=== PATIENT | male | born 1985 | race Caucasian/White ===

== ENCOUNTER 2016-05-30 16:34 | Emergency (ER) | payer MEDICAID ==
[2014-09-10 06:04] VITALS: BMI 38.3
[~2016-05-30 16:34] MED LIST: ABILIFY15 MG PO; BACTRIM DS TABL1 TAB PO; CYCLOBENZAPRINE5 MG PO; DYAZIDE 37.5/251 CAP PO; ELAVIL25 MG PO; ELAVIL75 MG PO; GLUCOPHAGE500 MG PO; HYDROCODONE-APA1 TAB PO; METOPROLOL TAR100 M1 PO; STOOL SOFTENER240 MG PO; TRIGLIDE160 MG PO; XANAX1 MG PO; ZANTAC150 MG PO; ZOLOFT50 MG PO
[2016-05-30 17:04] LABS: BASOPHILS 0.5 % (0.0-2.0); EOSINOPHILS 1.8 % (0-7); HEMATOCRIT 41.9 % (42.0-54.0); HEMOGLOBIN 13.8 g/dL (13.5-17.5); IMMATURE GRANULOCYTES 0.1 % (0-5); LYMPHOCYTES 37.6 % (15-50); MCH 28.8 pg (26.0-34.0); MCHC 32.9 g/dL (31.0-37.0); MCV 87.3 fL (80.0-100.0); MEAN PLATELET VOLUME 10.6 fL (7.4-10.4); MONOCYTES 8.2 % (2-11); NEUTROPHILS 51.8 % (40-80); PLATELET COUNT 218 10x3/uL (130-400); RDW 12.8 % (11.5-14.5); WBC 7.8 10x3/uL (4.8-10.8)
[2016-05-30 17:22] LABS: ALBUMIN 3.9 g/dL (3.4-5.0); ALKALINE PHOSPHATASE 78 U/L (46-116); ALT (SGPT) 42 U/L (10-68); BILIRUBIN - TOTAL 0.41 mg/dL (0.2-1.3); CALC OSMOLALITY 278 mosm/kg (275-300); CALCIUM 9.1 mg/dL (8.5-10.1); CHLORIDE - SERUM 102 mmol/L (98-107); GLUCOSE 91 mg/dL (74-106); PROTEIN - SERUM 7.4 g/dL (6.4-8.2); SODIUM 140 mmol/L (136-145); UREA NITROGEN 12 mg/dL (7-18); eGFR NON AFRICAN AMERICAN > 90 mL/min (90-120)
== END 2016-05-30 19:55 | disposition home or self-care (01) ==
LOC: D.ER 16:34
PROVIDERS: Emergency Medicine Emergency Medical Services
DX: M94.0 Chondrocostal junction syndrome [Tietze] (principal); J20.9 Acute bronchitis, unspecified; F41.9 Anxiety disorder, unspecified; E78.5 Hyperlipidemia, unspecified; F17.200 Nicotine dependence, unspecified, uncomplicated

== ENCOUNTER 2016-06-08 16:32 | Emergency (ER) | payer MEDICAID ==
[2014-09-10 06:04] VITALS: BMI 38.3
== END 2016-06-08 22:38 | disposition left against medical advice (07) ==
LOC: D.ER 16:32
DX: B02.9 Zoster without complications (principal)

== ENCOUNTER → 2016-07-27 14:52 | Outpatient (CLI) | payer MEDICAID ==
[2014-09-10 06:04] VITALS: BMI 38.3
== END | disposition home or self-care (01) ==
LOC: D.MRI 14:30
DX: M54.16 Radiculopathy, lumbar region (principal)

== ENCOUNTER → 2017-02-21 05:08 | Day surgery (SDC) | payer MEDICAID ==
[~2017-02-21 05:08] MED LIST changes: -HYDROCODONE-APA1 TAB PO; +LIPITOR40 MG PO; -METOPROLOL TAR100 M1 PO; +METOPROLOL TART50 MG PO; +NEURONTIN 300300 MG PO; +NORCO 7.5/325 T1 TA1 PO; +OXYCODONE HCL5 MG PO; +ROBAXIN-750750 MG PO; +STOOL SOFTENER100 M1 PO; -STOOL SOFTENER240 MG PO
[2017-02-21 06:13] VITALS: BP 101/62; BMI 31.5
[2017-02-21 06:25] LABS: HEMATOCRIT 40.9 % (42.0-54.0); HEMOGLOBIN 13.8 g/dL (13.5-17.5); MCH 29.3 pg (26.0-34.0); MCHC 33.7 g/dL (31.0-37.0); MCV 86.8 fL (80.0-100.0); MEAN PLATELET VOLUME 10.7 fL (7.4-10.4); RBC 4.71 10x6/uL (4.20-6.10); WBC 7.8 10x3/uL (4.8-10.8)
[2017-02-21 06:42] LABS: CALC OSMOLALITY 275 mosm/kg (275-300); CALCIUM 8.6 mg/dL (8.5-10.1); CARBON DIOXIDE 29.9 mmol/L (21.0-32.0); CHLORIDE - SERUM 99 mmol/L (98-107); CREATININE - SERUM 0.9 mg/dL (0.6-1.3); GLUCOSE 111 mg/dL (74-106); POTASSIUM - SERUM 3.9 mmol/L (3.5-5.1); SODIUM 137 mmol/L (136-145); UREA NITROGEN 15 mg/dL (7-18); eGFR NON AFRICAN AMERICAN > 90 mL/min (90-120)
--- NOTE | 2017-02-21 18:19 | NUR ---
1100--IV DC'D, PT UP TO DRESS AT THIS TIME. YOSVANY PICKERING 1120--DISCHARGE INSTRUCTIONS GIVEN, PT VERBALIZES UNDERSTANDING. PT OFF UNIT VIA WC. YOSVANY PICKERING
--- NOTE | 2017-02-22 10:30 | OP ---
PATIENT NAME: KEAGAN DEE MEDICAL RECORD: [id number] :87 LOCATION:D.OPS ADMISSION DATE: SURGEON: FELECIA LORENZO MD DATE OF OPERATION: 02/21/2017 PREOPERATIVE DIAGNOSES: 1. Recurrent pilonidal cyst. 2. Hypertension. 3. GERD. 4. Tobacco dependent syndrome. POSTOPERATIVE DIAGNOSES: 1. Recurrent pilonidal cyst. 2. Hypertension. 3. GERD. 4. Tobacco dependent syndrome. PROCEDURE: Pilonidal cystectomy with marsupialization. SURGEON: Felecia Lorenzo MD REPORT OF PROCEDURE: The patient was placed in the jackknife prone position and the perianal region was prepped and draped in sterile fashion. There was an opening in the midline of the gluteal crease, and with probing this, it was noted to extend inferiorly. We opened up the skin overlying this using electrocautery and encountered a long narrow cystic cavity. The cyst cavity was excised on all sides, revealing what appeared to be scar tissue and fatty tissue. We then irrigated out the wound thoroughly with normal saline. We measured out and the total length of the incision was about 5 cm. The skin edges were undermined and the skin was sutured down to the presacral fascia using interrupted #0 Vicryls. There was good marsupialization of the tissue. We then packed the wound with damp gauze and covered with dry gauze. COMPLICATIONS: None. CONDITION: Stable. ANESTHESIA: General endotracheal. BLOOD LOSS: 30 mL. TRANSINT:[id number] Voice Confirmation ID: [id number] DOCUMENT ID: [id number] FELECIA LORENZO MD at 1030 CC: [id number] DICTATION DATE: 02/21/17 0858 [employer]: 02/21/17 1141 [facility] 02/21/17 [id number] [place] [address]
== END | disposition home or self-care (01) ==
LOC: D.OPS 05:08
PROVIDERS: Anesthesiology
DX: L05.91 Pilonidal cyst without abscess (principal); I10 Essential (primary) hypertension; K21.9 Gastro-esophageal reflux disease without esophagitis; F17.200 Nicotine dependence, unspecified, uncomplicated; E11.9 Type 2 diabetes mellitus without complications; Z01.812 Encounter for preprocedural laboratory examination